=== PATIENT | male | born 2000 | race Caucasian/White ===

== ENCOUNTER 2020-10-06 22:13 | Emergency (ER) | payer OTHER, SELFPAY ==
[2020-10-06 22:51] VITALS: BP 121/74; PULSE 83; RESP 18; TEMP 37.6; O2SAT 98; BMI 29.0
[2020-10-06 23:00] LABS: Add Urine Microscopic? NO; Charge for UA Resulting for Rev
[2020-10-06 23:15] LABS: Urine Color Amber (Yellow)
[2020-10-06 23:16] LABS: Bilirubin Urine Neg (Negative); Blood Urine Neg (Negative); Glucose Urine UA Norm (Normal); Ketones Urine 2+ (Negative); Leukocyte Esterase Urine Negative (Negative); Nitrate Urine Negative (Negative); Protein Urine Neg (Negative); Specific Gravity, Urine 1.015 (1.005-1.030); Urine Appearance Clear (CLEAR); Urobilinogen Urine 1 mg/dL (Negative); pH Urine 6.5 (5-7)
[2020-10-06 23:21] LABS: Hematocrit 45.5 % (42.0-52.0); Hemoglobin 15.2 g/dL (11.7-16.6); Mean Corpuscular HGB Conc 33.4 g/dL (30.0-36.0); Mean Corpuscular Hemoglobin 28.5 pg (28.0-34.0); Mean Corpuscular Volume 85.2 fL (80-94); Mean Platelet Volume 10.4 fL (7.4-10.4); Platelet Count 133 10^3/cmm (130-400); Red Blood Count 5.34 10^6/uL (4.1-5.3); Red Cell Distribution Width 13.6 % (12.1-15.1); White Blood Count 2.9 10^3/uL (4.5-13.0)
[2020-10-06 23:39] LABS: Alanine Aminotransferase 86 U/L (0-41); Albumin Level 4.1 g/dL (3.5-5.2); Alkaline Phosphatase 167 IU/L (40-130); Anion Gap 18.7 (5-19); Aspartate Amino Transferase 49 U/L (0-40); Blood Urea Nitrogen 13 mg/dL (6-20); Calcium 8.7 mg/dL (8.5-10.5); Carbon Dioxide 23 mmol/L (22-29); Chloride 96 mmol/L (98-107); Globulin 2.9 g/dL (1.3-4.6); Glomerular Filtration Rate 107.6 mL/min (90-130); Glucose 91 mg/dL (65-115); Lipase 16 U/L (13-60); Osmolality Calculated 278 mOsm/kg (285-295); Potassium 3.7 mmol/L (3.5-5.1); Sodium 134 mmol/L (136-145); Total Bilirubin 0.6 mg/dL (0.15-1.2)
[2020-10-06 23:51] LABS: Absolute Neutrophil 2.3 10^3/cmm (1.4-6.5); Absolute Segmented Neutrophil 1.5 10/cmm (1.6-7.1); Band Neutrophils Absolute 0.8 10^3/cmm (0.0-1.2); Eosinophils 0 %; Lymphocytes 15 %; Lymphocytes Absolute 0.5 10^3/cmm (1.2-3.4); Monocytes Absolute 0.1 10^3/cmm (0.1-0.6); Platelet Estimate Normal (Normal); Segmented Neutrophils 50 %; Slide Review Slide Review Perform; Total Cells Counted 100 (0-100)
--- NOTE | 2020-10-07 | ED_ITS ---
HPI - Abdominal Pain General: Chief Complaint: Abdominal Pain Stated Complaint: abd pain/n/v Time Seen by Provider: 10/06/20 23:59 History of Present Illness: HPI narrative: 19-year-old male patient comes in with headache, nausea and vomiting, sinus pressure, and illness since Saturday. Patient has had COVID-19 exposure. Patient reports no cough but some sinus drainage. Patient appears unwell but not toxic. Patient appears in mild to moderate pain. Review of Systems General: Reports: 10 or more systems reviewed and unremarkable except in HPI and below Neuro: Reports: headache(s) PFSH ED PFSH: Social History Smoking and tobacco status: never smoked Second hand smoke exposure: No Current gender identity: Male Physical Exam Const: COMMON NORMALS: no acute distress and patient oriented x3 GENERAL APPEARANCE: cooperative HENMT: COMMON NORMALS: normocephalic, TM's normal bilaterally and Normal external nose present HEAD & SCALP: normal to inspection and normocephalic NOSE: Normal external nose present TYMPANIC MEMBRANE: TM's normal bilaterally MOUTH: Normal oral and palatal mucosa present THROAT: posterior oropharynx normal Eye: GENERAL EYE: appearance normal, both eyes and all related structures Neck/C-Spine: COMMON NORMALS: full ROM Lymph: LYMPHATIC: no lymphadenopathy noted Chest: COMMONS NORMALS: normal inspection of the chest Resp: COMMON NORMALS: normal respiratory effort EFFORT & INSPECTION: Yes able to speak in complete sentences Cardio: COMMON NORMALS: regular rate and regular rhythm RATE: regular rate RHYTHM: regular rhythm GI: COMMON NORMALS: Soft to palpation PALPATION: Yes Soft to palpation and Yes Tenderness to palpation present (GI) : COMMON NORMALS: Yes no CVA tenderness BLADDER/KIDNEY EXAM: Yes no CVA tenderness Back/Pelvis: COMMON NORMALS: no CVA tenderness and thoracic and lumbar spine normal to inspection Extremity: COMMON NORMALS: normal to inspection Neuro: COMMON NORMALS: patient oriented x3 and moves all extremities Psych: COMMON NORMALS: mental status grossly normal and cooperative Skin: NARRATIVE SKIN EXAM: Patient has eczema rash Course Vital Signs: Vital signs: Vital Signs Temperature 99.6 F 10/06/20 22:51 Pulse Rate 83 10/06/20 22:51 Respiratory Rate 18 10/06/20 22:51 Blood Pressure 121/74 10/06/20 22:51 Pulse Oximetry 98 10/06/20 22:51 MDM - Abdominal Pain MDM Narrative: Medical decision making narrative: 19-year-old male patient comes in today with some nausea and vomiting and a headache. Patient reports feeling ill for the last 4 to 5 days. Patient reports 4-5 episodes of vomiting. Patient appears unwell but not toxic. Abdomen is soft with some mild tenderness. Bowel sounds are present. Skin is warm and dry. Patient does have eczema rash. Differential diagnosis includes but not limited to gastroenteritis, viral syndrome, migraine headache, COVID-19, hepatitis. Patient does have some mild leukopenia with a 2.9 white blood cell count. CMP was remarkable for some elevated liver enzymes. Lipase was normal. CT scan of the abdomen pelvis noted a mildly enlarged liver with some mesenteric lymph nodes. COVID-19 antigen test was negative. I believe the patient probably has a viral syndrome possible hepatitis or may be COVID-19. We will go ahead and do a PCR COVID-19 test and send out. We have also added an acute hepatitis panel to patient's labs. Recommended patient drink plenty of fluids use Zofran for nausea and vomiting. Get plenty of rest and follow-up with primary care. Patient reported understanding and agreed to plan. Lab Data: Labs: Lab Results 10/06/20 10/06/20 10/06/20 Range/Units 22:40 23:12 23:12 WBC 2.9 L (4.5-13.0) 10^3/ uL RBC 5.34 H (4.1-5.3) 10^6/u L Hgb 15.2 (11.7-16.6) g/dL Hct 45.5 (42.0-52.0) % MCV 85.2 (80-94) fL MCH 28.5 (28.0-34.0) pg MCHC 33.4 (30.0-36.0) g/dL RDW 13.6 (12.1-15.1) % Plt Count 133 (130-400) 10^3/c mm MPV 10.4 (7.4-10.4) fL Lymph % (Auto) Not Reportable [place] % (Auto) Not Reportable Lymph # (Auto) Not Reportable [place] # (Auto) Not Reportable Total Counted 100 (0-100) Atypical Lymphs % 3.0 (0-5) % Absolute Neutrophi ls 2.3 (1.4-6.5) 10^3/c mm Segmented Neutroph ils 50 % Abs Segm Neuts (Ma n) 1.5 L (1.6-7.1) 10/cmm Band Neutrophils 29.0 % Abs Band Neuts (Ma n) 0.8 (0.0-1.2) 10^3/c mm Absolute Lymphocyt es 0.5 L (1.2-3.4) 10^3/c mm Lymphocytes (Manua l) 15 % Monocytes (Manual) 3.0 % Absolute Monocytes 0.1 (0.1-0.6) 10^3/c mm Eosinophils (Manua l) 0 % Absolute Eosinophi ls 0.0 (0.0-0.7) 10^3/c mm Basophils (Manual) 0.0 % Absolute Basophils 0.0 (0.0-0.2) 10^3/c mm Platelet Estimate Normal (Normal) Sodium 134 L (136-145) mmol/L Potassium 3.7 (3.5-5.1) mmol/L Chloride 96 L (98-107) mmol/L Carbon Dioxide 23 (22-29) mmol/L Anion Gap 18.7 (5-19) BUN 13 (6-20) mg/dL Creatinine 0.9 (0.7-1.2) mg/dL GFR Calculation 107.6 (90-130) mL/min Glucose 91 (65-115) mg/dL Calculated Osmolal ity 278 L (285-295) mOsm/k g Lactic Acid (0.5-2.2) mmol/L Calcium 8.7 (8.5-10.5) mg/dL Total Bilirubin 0.6 (0.15-1.2) mg/dL AST 49 H (0-40) U/L ALT 86 H (0-41) U/L Alkaline Phosphata se 167 H (40-130) IU/L C-Reactive Protein (0.0-4.9) mg/L Total Protein 7.0 (6.6-8.7) g/dL Albumin 4.1 (3.5-5.2) g/dL Globulin 2.9 (1.3-4.6) g/dL Lipase 16 (13-60) U/L Urine Color Rita (Yellow) Urine Appearance Clear (CLEAR) Urine pH 6.5 (5-7) Ur Specific Gravit y 1.015 (1.005-1.030) Urine Protein Neg (Negative) Urine Glucose (UA) Norm (Normal) Urine Ketones 2+ H (Negative) Urine Blood Neg (Negative) Urine Nitrate Negative (Negative) Urine Bilirubin Neg (Negative) Urine Urobilinogen 1 H (Negative) mg/dL Ur Leukocyte Mikaela ase Negative (Negative) Monoscreen (Negative) SARS-CoV-2 Ag (Rap id) (Negative) Group A Strep Rapi d (Negative) 10/06/20 10/06/20 10/06/20 Range/Units 23:12 23:12 23:12 WBC (4.5-13.0) 10^3/ uL RBC (4.1-5.3) 10^6/u L Hgb (11.7-16.6) g/dL Hct (42.0-52.0) % MCV (80-94) fL MCH (28.0-34.0) pg MCHC (30.0-36.0) g/dL RDW (12.1-15.1) % Plt Count (130-400) 10^3/c mm MPV (7.4-10.4) fL Lymph % (Auto) [place] % (Auto) Lymph # (Auto) [place] # (Auto) Total Counted (0-100) Atypical Lymphs % (0-5) % Absolute Neutrophi ls (1.4-6.5) 10^3/c mm Segmented Neutroph ils % Abs Segm Neuts (Ma n) (1.6-7.1) 10/cmm Band Neutrophils % Abs Band Neuts (Ma n) (0.0-1.2) 10^3/c mm Absolute Lymphocyt es (1.2-3.4) 10^3/c mm Lymphocytes (Manua l) % Monocytes (Manual) % Absolute Monocytes (0.1-0.6) 10^3/c mm Eosinophils (Manua l) % Absolute Eosinophi ls (0.0-0.7) 10^3/c mm Basophils (Manual) % Absolute Basophils (0.0-0.2) 10^3/c mm Platelet Estimate (Normal) Sodium (136-145) mmol/L Potassium (3.5-5.1) mmol/L Chloride (98-107) mmol/L Carbon Dioxide (22-29) mmol/L Anion Gap (5-19) BUN (6-20) mg/dL Creatinine (0.7-1.2) mg/dL GFR Calculation (90-130) mL/min Glucose (65-115) mg/dL Calculated Osmolal ity (285-295) mOsm/k g Lactic Acid 0.9 (0.5-2.2) mmol/L Calcium (8.5-10.5) mg/dL Total Bilirubin (0.15-1.2) mg/dL AST (0-40) U/L ALT (0-41) U/L Alkaline Phosphata se (40-130) IU/L C-Reactive Protein 57.7 H (0.0-4.9) mg/L Total Protein (6.6-8.7) g/dL Albumin (3.5-5.2) g/dL Globulin (1.3-4.6) g/dL Lipase (13-60) U/L Urine Color (Yellow) Urine Appearance (CLEAR) Urine pH (5-7) Ur Specific Gravit y (1.005-1.030) Urine Protein (Negative) Urine Glucose (UA) (Normal) Urine Ketones (Negative) Urine Blood (Negative) Urine Nitrate (Negative) Urine Bilirubin (Negative) Urine Urobilinogen (Negative) mg/dL Ur Leukocyte Mikaela ase (Negative) Monoscreen Negative (Negative) SARS-CoV-2 Ag (Rap id) (Negative) Group A Strep Rapi d (Negative) 10/07/20 10/07/20 Range/Units 01:45 01:45 WBC (4.5-13.0) 10^3/ uL RBC (4.1-5.3) 10^6/u L Hgb (11.7-16.6) g/dL Hct (42.0-52.0) % MCV (80-94) fL MCH (28.0-34.0) pg MCHC (30.0-36.0) g/dL RDW (12.1-15.1) % Plt Count (130-400) 10^3/c mm MPV (7.4-10.4) fL Lymph % (Auto) [place] % (Auto) Lymph # (Auto) [place] # (Auto) Total Counted (0-100) Atypical Lymphs % (0-5) % Absolute Neutrophi ls (1.4-6.5) 10^3/c mm Segmented Neutroph ils % Abs Segm Neuts (Ma n) (1.6-7.1) 10/cmm Band Neutrophils % Abs Band Neuts (Ma n) (0.0-1.2) 10^3/c mm Absolute Lymphocyt es (1.2-3.4) 10^3/c mm Lymphocytes (Manua l) % Monocytes (Manual) % Absolute Monocytes (0.1-0.6) 10^3/c mm Eosinophils (Manua l) % Absolute Eosinophi ls (0.0-0.7) 10^3/c mm Basophils (Manual) % Absolute Basophils (0.0-0.2) 10^3/c mm Platelet Estimate (Normal) Sodium (136-145) mmol/L Potassium (3.5-5.1) mmol/L Chloride (98-107) mmol/L Carbon Dioxide (22-29) mmol/L Anion Gap (5-19) BUN (6-20) mg/dL Creatinine (0.7-1.2) mg/dL GFR Calculation (90-130) mL/min Glucose (65-115) mg/dL Calculated Osmolal ity (285-295) mOsm/k g Lactic Acid (0.5-2.2) mmol/L Calcium (8.5-10.5) mg/dL Total Bilirubin (0.15-1.2) mg/dL AST (0-40) U/L ALT (0-41) U/L Alkaline Phosphata se (40-130) IU/L C-Reactive Protein (0.0-4.9) mg/L Total Protein (6.6-8.7) g/dL Albumin (3.5-5.2) g/dL Globulin (1.3-4.6) g/dL Lipase (13-60) U/L Urine Color (Yellow) Urine Appearance (CLEAR) Urine pH (5-7) Ur Specific Gravit y (1.005-1.030) Urine Protein (Negative) Urine Glucose (UA) (Normal) Urine Ketones (Negative) Urine Blood (Negative) Urine Nitrate (Negative) Urine Bilirubin (Negative) Urine Urobilinogen (Negative) mg/dL Ur Leukocyte Mikaela ase (Negative) Monoscreen (Negative) SARS-CoV-2 Ag (Rap id) Negative (Negative) Group A Strep Rapi d Negative (Negative) Discharge Plan Discharge Patient Disposition: Home Clinical Impression: Viral syndrome Leukocytopenia, unspecified Qualifiers: Leukopenia type: unspecified Qualified Code(s): D72.819 - Decreased white blood cell count, unspecified Condition: Stable Prescriptions: New ondansetron 4 mg tablet,disintegrating 4 mg PO Q8H PRN (Reason: nausea and vomiting) Qty: 7 RF: 0 No Action bupropion HCl [Wellbutrin XL] 300 mg tablet extended release 24 hr 300 mg PO QAM Qty: 30 RF: 2 fluoxetine [Prozac] 20 mg capsule 20 mg PO DAILY Qty: 30 RF: 2 Discharge Orders: Discharge ED (Routine); Ordered 10/07/20 Ordered By: Ibrahima Saleem Discharge Diet: Advance as tolerated Discharge Activity: Increase activity as tolerated Patient Instructions: Viral Syndrome (ED), Opioid Safety Activity Restrictions/Additional Instructions: Drink plenty of fluids. Use ondansetron as needed for nausea and vomiting. Start with clear liquids and increase diet slowly over the next 24 to 48 hours. We have done a acute hepatitis panel I recommend you follow-up with your primary care for those results. I think you should also have a repeat blood cell count in a week to recheck your white blood cells as they were low. Also your CT scan was fairly normal except for some mild enlargement of your liver which your primary care may want to further evaluate along with the incidental lymph nodes that were seen. Return to the emergency room for worsening symptoms such as persistent vomiting with inability to control it, blood in vomit or stool, or a fever greater than 100.4. Coding Level of Care Code ED Financial Report Service Sales Agent for Precious Higuera
--- NOTE | 2020-10-07 00:11 | XRR_ITS ---
PROCEDURE INFORMATION: Exam: XR Chest Exam date and time: 10/07/2020 12:11 AM Age: 19 years old Clinical indication: Fever; Additional info: Cough, probable covid TECHNIQUE: Imaging protocol: XR of the chest. Views: 1 view. COMPARISON: No relevant prior studies available. FINDINGS: Lungs: Unremarkable. No consolidation. Pleural spaces: Unremarkable. No pleural effusion. No pneumothorax. Heart/Mediastinum: Unremarkable. No cardiomegaly. Bones/joints: Unremarkable. XR/XR chest 1V portable [id number] IMPRESSION: No acute disease.
--- NOTE | 2020-10-07 00:30 | CTR_ITS ---
PROCEDURE INFORMATION: Exam: CT Abdomen And Pelvis With Contrast Exam date and time: 10/07/2020 12:30 AM Age: 19 years old Clinical indication: Nausea and vomiting; Abdominal pain; Generalized; Patient HX: Abd pain with n/v. ; Additional info: Abd pain, n/v TECHNIQUE: Imaging protocol: Computed tomography of the abdomen and pelvis with contrast. Radiation optimization: All CT scans at this facility use at least one of these dose optimization techniques: automated exposure control; mA and/or kV adjustment per patient size (includes targeted exams where dose is matched to clinical indication); or iterative reconstruction. Contrast material: OMNI 300; Contrast volume: 95 ml; Contrast route: INTRAVENOUS (IV); COMPARISON: CR (CHEST, ) 10/07/2020 12:13 AM RADIATION DOSE METRICS: Total DLP (mGy-cm): 1330.65 FINDINGS: Lungs: The lung bases are clear. No effusion Liver: There is mild hepatomegaly. Gallbladder and bile ducts: No wall thickening, pericholecystic fluid or stones. Pancreas: Normal. No ductal dilation. Spleen: Normal. No splenomegaly. Adrenal glands: Normal. No mass. Kidneys and ureters: Normal. No hydronephrosis. Stomach and bowel: Unremarkable. No obstruction. No mucosal thickening. Appendix: No evidence of appendicitis. Intraperitoneal space: Tiny amount of free fluid in the pelvis. Multiple mesenteric lymph nodes, the largest is 1.3 x 1.2 cm. Vasculature: Unremarkable. No abdominal aortic aneurysm. Lymph nodes: See Intraperitoneal space finding. Urinary bladder: Unremarkable as visualized. Reproductive: Unremarkable as visualized. Bones/joints: Unremarkable. No acute fracture. Soft tissues: Unremarkable. CT/CT abdomen pelvis w con* [id number] IMPRESSION: 1. There is mild hepatomegaly. 2. Nonspecific, enlarged mesenteric lymph nodes which may be secondary to infection or neoplasm. Radiation Dose CTDIVOL = (mGy): DLP = 1330.65 (mGy-cm)
[2020-10-07 00:37] LABS: Monoscreen Negative (Negative)
[2020-10-07 00:44] LABS: Lactic Sepsis W/Reflex 0.9 mmol/L (0.5-2.2)
[2020-10-07 00:45] LABS: C Reactive Protein 57.7 mg/L (0.0-4.9)
[2020-10-07] MEDS: iohexol 300 mg/mL 100 mL Btl IV (00:47)
[2020-10-07] MEDS: dexamethasone 4 mg/mL INJ IVP (01:30)
[2020-10-07] MEDS: diphenhydrAMINE 50 mg/mL SDV 1mL 25 MG IVP (01:33)
[2020-10-07] MEDS: metoclopramide 5 mg/mL SDV 2 mL 10 MG IVP (01:34)
[2020-10-07] MEDS: sodium chloride 0.9% 1,000 ML 999 ML IV (01:34)
[2020-10-07] MEDS: ketorolac 30 mg/mL INJ 15 MG IVP (01:34)
[2020-10-07 02:14] LABS: Rapid Strep A Test Negative (Negative)
[2020-10-07 02:25] LABS: SARS Covid-2 Antigen Negative (Negative)
[2020-10-07 02:47] LABS: Hepatitis A Antibody IgM Non-Reactive (Nonreactive); Hepatitis B Core IgM Non-Reactive (Nonreactive); Hepatitis B Surface Antigen Non-Reactive (Nonreactive); Hepatitis C Virus Antibody Non-Reactive (Nonreactive)
[2020-10-07 02:50] VITALS: PULSE 67; RESP 18; O2SAT 98
[2020-10-07 02:58] VITALS: PULSE 67; RESP 18; O2SAT 98
== END 2020-10-07 02:58 | disposition home or self-care (01) ==
PROVIDERS: Emergency Provider Nurse Practitioner Family
DX: B34.9 Viral infection, unspecified (principal); D72.819 Decreased white blood cell count, unspecified
CPT/HCPCS: 36415; 71045; 74177; 80053; 80074; 81003; 83605; 83690; 85007; 85025; 86140; 86308; 87081; 87426; 87635; 87880; 96361; 96374; 96375; 99284; J1100; J1200; J1885; J2765; J7030; Q9967

== ENCOUNTER 2021-04-08 14:22 | Emergency (ER) | payer OTHER, SELFPAY ==
[2021-04-08 14:50] VITALS: BP 134/77; PULSE 95; RESP 16; TEMP 36.6; O2SAT 98; BMI 30.7
--- NOTE | 2021-04-08 15:38 | W.ED.SKABFB ---
HPI - Skin/Abscess/Foreign Bdy General: Chief complaint: Skin/Abscess/Foreign Body Stated complaint: Dermititis break out all over Time Seen by Provider: 04/08/21 14:56 Source: patient Mode of arrival: ambulatory Limitations: no limitations History of Present Illness: Patient is a 20-year-old male who presents to ED today with a complaint of a chronic skin rash. 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 He states he had been on several different medications but eventually was placed on Dupixent biweekly with fairly good control of his symptoms however he is recently moved to the area and hasn't had much access traveling back and forth to [place]. Patient states he would like something to help with his itching. He has no new complaints today. MD complaint: rash Onset (ago): year(s) Location: generalized Severity: severe Quality: pruritic Relieving factors: other (dupixent) Associated symptoms: Deny chills or fever(s) Review of Systems Const: Denies: fever(s), chills, body aches, fatigue or malaise Eyes: Denies: change in vision Card: Denies: chest pain Resp: Denies: dyspnea GI: Denies: abdominal pain Musc: Denies: neck pain, back pain, extremity pain or joint pain Skin/Breast: Reports: rash and pruritus Neuro: Denies: headache(s), numbness in extremities, weakness in extremities or sensory changes [facility] ED PFSH: Medical History (Updated 04/08/21 @ 15:57 by YINA Nieves) Psychiatric care Social History Smoking and tobacco status: never smoked Second hand smoke exposure: No Current gender identity: Male Physical Exam Const: COMMON NORMALS: no acute distress, patient oriented x3, no limitations and alert GENERAL APPEARANCE: cooperative ORIENTATION/CONSCIOUSNESS: Yes awake, Yes oriented to person, Yes oriented to place and Yes oriented to time HENMT: COMMON NORMALS: normocephalic and atraumatic HEAD & SCALP: normocephalic and atraumatic MOUTH: Normal oral and palatal mucosa present, lip normal and tongue normal Eye: GENERAL EYE: appearance normal, both eyes and all related structures Neck/C-Spine: COMMON NORMALS: full ROM, no lymphadenopathy and no meningeal signs Resp: COMMON NORMALS: normal respiratory effort Cardio: COMMON NORMALS: regular rate and regular rhythm RATE: regular rate RHYTHM: regular rhythm Neuro: COMMON NORMALS: patient oriented x3, moves all extremities, no focal motor deficits, no sensory deficits noted and gait normal SENSORIUM/ORIENTATION: Yes alert, Yes oriented to person, Yes oriented to place and Yes oriented to time MENINGEAL SIGNS: Yes no meningeal signs Skin: RASHES: rashes noted OTHER: patient has a diffuse inflammatory rash throughout torso/bilateral UE/LEs that appears plaque/scaly like with excoriations Course Vital Signs: Vital signs: Vital Signs Temperature 97.8 F 04/08/21 14:50 Pulse Rate 95 04/08/21 14:50 Respiratory Rate 16 04/08/21 14:50 Blood Pressure 134/77 04/08/21 14:50 Pulse Oximetry 98 04/08/21 14:50 MDM - Skin/Abscess/Foreign Bdy Medicial Decision Making Spoke about getting patient a referral to Dr. Beavers here in [facility] for better access and getting patient put back on his Dupixent. He states his mother wants him to continue to follow-up in [place]. I spoke to him about how this does not sound very feasible but if that is the route they wish to go that is up to them. I recommended patient follow-up with his PCP-they can also place referral to Dr. Beavers if patient decides he would like somebody closer. Patient will be given PO Vistaril to help with itching. Discharge Plan Discharge Patient Disposition: Home Clinical Impression: Dermatitis Condition: Stable Prescriptions: New Vistaril 50 mg capsule 50 mg PO Q6H PRN (Reason: itching) Qty: 20 0RF No Action bupropion HCl [Wellbutrin XL] 300 mg tablet extended release 24 hr 300 mg PO QAM Qty: 30 2RF fluoxetine [Prozac] 20 mg capsule 20 mg PO DAILY Qty: 30 2RF naltrexone 50 mg tablet 50 mg PO DAILY Qty: 30 2RF ondansetron 4 mg tablet,disintegrating 4 mg PO Q8H PRN (Reason: nausea and vomiting) Qty: 7 0RF Discharge Orders: Discharge ED (Routine); Ordered 04/08/21 Ordered By: Patricia Ledesma Referrals: Nimesh,Luly, DO [Physician] - Activity Restrictions/Additional Instructions: As we discussed you need to try to get back to your tube drawer in [place]. If you decide you would like a tube drawer closer to home please contact your primary care provider for referral to see Dr. Beavers. I have also attached your information to your discharge paperwork-you may try to contact their office to see if they can see you without a referral. Ultimately I feel you would most benefit by getting back on your Dupixent for treatment of your severe dermatitis. Coding Level of Care Code ED Eap Consultant for Precious Higuera
== END 2021-04-08 16:02 | disposition home or self-care (01) ==
PROVIDERS: Emergency Provider Physician Assistant
DX: L30.9 Dermatitis, unspecified (principal)
CPT/HCPCS: 99281

== ENCOUNTER 2021-05-22 13:19 | Emergency (ER) | payer OTHER, SELFPAY ==
[2021-05-22 13:30] VITALS: PULSE 110; RESP 18; TEMP 36.8; O2SAT 100; BMI 30.7
--- NOTE | 2021-05-22 14:09 | XR_ITS ---
WS: [id number] Exam: XR chest 1V portable [id number] Date/Time of Exam: 05/22/2021 2:13 PM Reason For Exam: fatigue Comparison 10/07/2020. Findings: The lungs are clear and fully expanded. Costophrenic angles are sharp. No infiltrates. Bronchovascula r relief appears normal. Cardiac silhouette is unremarkable. Bony elements are intact. XR/XR chest 1V portable [id number] IMPRESSION: Unremarkable chest radiograph.
--- NOTE | 2021-05-22 14:13 | ED_ITS ---
HPI - Extremity Problem General: Chief complaint: Extremity Injury, Lower Stated complaint: Pain in both legs Time Seen by Provider: 05/22/21 13:27 History of Present Illness: Patient is a 20-year-old male comes to the ED with bilateral lower extremity swelling. Symptoms have been going on for approximately 1 month. He has never had any lower extremity swelling like this before. Denies any injury or trauma to lower extremities. He saw his PCP approximately a month ago for same complaint and they put him on a diuretic and Bactrim. Patient says his symptoms improved some but once he ran out of the diuretic and Bactrim his legs started swelling again. He reports pain in both legs and weeping as well. Patient has a job where he is on his feet all day. He does endorse having some increased fatigue over the last month. Denies any chest pain or shortness of breath. Associated symptoms: Deny chest pain, fever(s) or rash Review of Systems Const: Reports: fatigue; Denies: fever(s) or chills Eyes: Denies: change in vision or eye discomfort ENMT: Denies: throat pain, odynophagia, nasal discharge or nasal congestion Card: Denies: chest pain, palpitations, edema, swelling of feet/ankles, dyspnea on exertion or orthopnea Resp: Denies: dyspnea, productive cough or non-productive cough GI: Denies: abdominal pain, nausea, vomiting, diarrhea, constipation or hematochezia : Denies: flank pain, difficulty urinating, dysuria or hematuria Musc: Reports: extremity pain (Bilateral lower extremity.) and extremity swelling (Bilateral lower extremity); Denies: neck pain or back pain Skin/Breast: Denies: rash or new lesions Neuro: Denies: headache(s), numbness in extremities or weakness in extremities [facility] ED PFSH: Medical History Perivascular dermatitis Psychiatric care Surgical History No pertinent past surgical history Social History Smoking and tobacco status: never smoked Second hand smoke exposure: No Current gender identity: Male Physical Exam Const: COMMON NORMALS: patient oriented x3 and alert GENERAL APPEARANCE: cooperative HENMT: COMMON NORMALS: normocephalic HEAD & SCALP: normocephalic MOUTH: Normal oral and palatal mucosa present THROAT: posterior oropharynx normal and uvula midline Eye: COMMON NORMALS: Equal, round and reactive pupils present PUPIL: Yes Equal, round and reactive pupils present Neck/C-Spine: COMMON NORMALS: supple GENERAL: Yes normal visual inspection Resp: COMMON NORMALS: normal respiratory effort, No retractions, No use of accessory muscles and clear to auscultation bilaterally AUSCULTATION: clear to auscultation bilaterally Cardio: COMMON NORMALS: regular rate, regular rhythm, S1 normal heart sound present, S2 normal heart sound present, No gallops present (Cardio), No clicks present (Cardio) and Peripheral pulses 2+ throughout RATE: regular rate RHYTHM: regular rhythm HEART SOUNDS: S1 normal heart sound present, S2 normal heart sound present and Murmur heart sound present systolic Intensity: II/ Characteristics: soft Timing: early PERIPHERAL PULSES: Peripheral pulses 2+ throughout GI: COMMON NORMALS: Normal to inspection, nondistended, normoactive bowel sounds present, Soft to palpation, non-tender and no masses PALPATION: Yes Soft to palpation : COMMON NORMALS: Yes no CVA tenderness BLADDER/KIDNEY EXAM: Yes no CVA tenderness Back/Pelvis: COMMON NORMALS: no CVA tenderness Extremity: GENERAL: Yes edema (Bilateral 2+ pitting edema in lower extremit ies.) OTHER: Bilateral lower extremities have some erythema warmth and tenderness. Findings suggestive of possible cellulitis. Neuro: COMMON NORMALS: patient oriented x3 and moves all extremities SENSORIUM/ORIENTATION: Yes alert Skin: NARRATIVE SKIN EXAM: Patient has generalized dry and erythemic rash throughout body. Patient is constantly scratching his skin and think it is itchy. GENERAL SKIN EXAM: dry skin Course Vital Signs: Vital signs: Vital Signs Temperature 98.3 F 05/22/21 13:30 Pulse Rate 110 H 05/22/21 13:30 Respiratory Rate 18 05/22/21 13:30 Pulse Oximetry 100 05/22/21 13:30 MDM - Extremity (Nontraumatic) Medical Decision Making Patient is a 20-year-old male comes to the ED with bilateral lower extremity edema and bilateral leg pain. He has been having the symptoms now for the past month and saw his primary care physician for them and he was put on an antibiotic and Lasix. His symptoms improved while on the antibiotic and Lasix but now that he stopped taking both symptoms came back again. Patient has 2+ bilateral lower extremity edema with some signs of cellulitis noted as well. EKG showed normal sinus rhythm with no ST segment elevation or depression seen. Labs were unremarkable. Troponin negative and BNP was normal. Chest x-ray showed no acute findings. Patient was diagnosed with bilateral leg edema and cellulitis. He was given a dose of IV Lasix here in the ED and discharged home with a prescription for clindamycin and furosemide. He was told to follow-up with his PCP in the next couple weeks for reevaluation. Return to ED p recautions given. Patient stood agree with plan. Lab Data I reviewed the patient's lab results. : 05/22/21 14:28 05/22/21 14: Radiology Impressions Chest X-Ray 05/22/21 14:09 IMPRESSION: Unremarkable chest radiograph. Laboratory Results WBC 9.6 10^3/uL (4.0-10.0) 05/22/21 14: RBC 4.63 10^6/uL (4.1-5.3) 05/22/21 14:28 Hgb 13.1 g/dL (11.7-16.6) 05/22/21 14: Hct 40.5 % (42.0-52.0) L 05/22/21 14: MCV 87.5 fl (80-94) 05/22/21 14: MCH 28.3 pg (28.0-34.0) 05/22/21 14: MCHC 32.3 g/dL (30.0-36.0) 05/22/21 14: RDW 14.2 % (12.1-15.1) 05/22/21 14: Plt Count 404 10^3/cmm (130-400) H 05/22/21 14: MPV 8.5 fL (7.4-10.4) 05/22/21 14: Neut % (Auto) 57.7 % 05/22/21 14: Lymph % (Auto) 19.2 % 05/22/21 14: Harper % (Auto) 11.6 % 05/22/21 14: Eos % (Auto) 10.1 % 05/22/21 14: Baso % (Auto) 1.1 % 05/22/21 14: Neut # (Auto) 5.51 10^3/uL (1.8-7.7) 05/22/21 14: Lymph # (Auto) 1.8 10^3/uL (0.8-4.8) 05/22/21 14: Harper # (Auto) 1.1 10^3/uL (0.2-0.9) H 05/22/21 14: Eos # (Auto) 1.0 10^3/uL (0.0-0.8) H 05/22/21 14:28 Baso # (Auto) 0.1 10^3/uL (0.0-0.1) 05/22/21 14: Nucleated RBC % (auto) 0 % 05/22/21 14: Nucleated RBCs # 0.0 /100WBC 05/22/21 14:28 Sodium 138 mmol/L (136-145) 05/22/21 14: Potassium 3.9 mmol/L (3.5-5.1) 05/22/21 14: Chloride 103 mmol/L (98-107) 05/22/21 14: Carbon Dioxide 25 mmol/L (22-29) 05/22/21 14: Anion Gap 13.9 (5-19) 05/22/21 14: BUN 16 mg/dL (6-20) 05/22/21 14: Creatinine 0.7 mg/dL (0.7-1.2) 05/22/21 14: GFR Calculation 142.4 mL/min (90-130) H 05/22/21 14: Glucose 118 mg/dL (65-115) H 05/22/21 14:28 Calculated Osmolality 288 mOsm/kg (285-295) 05/22/21 14:28 Calcium 9.0 mg/dL (8.5-10.5) 05/22/21 14:28 Total Bilirubin 0.2 mg/dL (0.15-1.2) 05/22/21 14:28 AST 46 U/L (0-40) H 05/22/21 14:28 ALT 63 U/L (0-41) H 05/22/21 14:28 Alkaline Phosphatase 128 IU/L (40-130) 05/22/21 14:28 Troponin T Baseline 11 ng/L (0-15) 05/22/21 14:28 NT-Pro-B Natriuret Pep 68 pg/mL (0-125) 05/22/21 14:28 Total Protein 6.5 g/dL (6.6-8.7) L 05/22/21 14:28 Albumin 3.4 g/dL (3.5-5.2) L 05/22/21 14:28 Globulin 3.1 g/dL (1.3-4.6) 05/22/21 14:28 EKG Data EKG 1: EKG interpretation date: 05/22/21 Interpretation: Normal sinus rhythm, no ST segment elevation or depression seen, 90 bpm. Discharge Plan Discharge Patient Disposition: Home Clinical Impression: Bilateral leg edema Cellulitis Qualifiers: Site of cellulitis: extremity Site of cellulitis of extremity: lower extremity Laterality: unspecified laterality Qualified Code(s): L03.119 - Cellulitis of unspecified part of limb Condition: Stable Prescriptions: New furosemide 20 mg tablet 20 mg PO DAILY PRN (Reason: edema) Qty: 20 0RF clindamycin HCl 150 mg capsule 300 mg PO QID 7 Days Qty: 56 0RF No Action bupropion HCl [Wellbutrin XL] 300 mg tablet extended release 24 hr 300 mg PO QAM Qty: 30 2RF fluoxetine [Prozac] 20 mg capsule 20 mg PO DAILY Qty: 30 2RF naltrexone 50 mg tablet 50 mg PO DAILY Qty: 30 2RF ondansetron 4 mg tablet,disintegrating 4 mg PO Q8H PRN (Reason: nausea and vomiting) Qty: 7 0RF Vistaril 50 mg capsule 50 mg PO Q6H PRN (Reason: itching) Qty: 20 0RF Discharge Orders: Discharge ED (Routine); Ordered 05/22/21 Ordered By: Wil iGlbert Discharge Diet: Regular Discharge Activity: Resume usual activity Patient Instructions: Cellulitis (ED), Edema (ED) Activity Restrictions/Additional Instructions: Follow-up with PCP at your next scheduled appointment in a couple weeks. Take medications as prescribed. Use compression stockings or wrap legs with Justino bandage to compress and reduce swelling. Elevate legs at night to help with swelling as well. Return to the ER or your medical provider if condition worsens. Please read and understand discharge instructions. Thank you for choosing [facility] for your healthcare needs today. Please realize this is an emergency room and that we are providing you with a medical screening exam and this may not be complete and all inclusive of all the testing and or work up that you may need to determine your ailment or severity of your illness. It is very important that you follow up as instructed or that you return to the Emergency Department should you have concerns or if your condition changes or worsens in any way. Coding Level of Care Code ED Hypertrichologist for [place] Fwd Exam Comprehensive
[2021-05-22 14:36] LABS: Basophils # 0.1 10^3/uL (0.0-0.1); Basophils % 1.1 %; Eosinophils % 10.1 %; Hematocrit 40.5 % (42.0-52.0); Hemoglobin 13.1 g/dL (11.7-16.6); Lymphocytes # 1.8 10^3/uL (0.8-4.8); Lymphocytes % 19.2 %; Mean Corpuscular HGB Conc 32.3 g/dL (30.0-36.0); Mean Corpuscular Hemoglobin 28.3 pg (28.0-34.0); Mean Corpuscular Volume 87.5 fl (80-94); Mean Platelet Volume 8.5 fL (7.4-10.4); Monocytes # 1.1 10^3/uL (0.2-0.9); Monocytes % 11.6 %; Neutrophils # 5.51 10^3/uL (1.8-7.7); Neutrophils % 57.7 %; Nucleated Red Blood Cells % 0 %; Platelet Count 404 10^3/cmm (130-400); Red Blood Count 4.63 10^6/uL (4.1-5.3); Red Cell Distribution Width 14.2 % (12.1-15.1); White Blood Count 9.6 10^3/uL (4.0-10.0)
[2021-05-22] MEDS: ketorolac 30 mg/mL INJ IVP (14:48)
[2021-05-22 15:11] LABS: Troponin(5th) Baseline 11 ng/L (0-15)
[2021-05-22 15:18] LABS: Alanine Aminotransferase 63 U/L (0-41); Albumin Level 3.4 g/dL (3.5-5.2); Alkaline Phosphatase 128 IU/L (40-130); Anion Gap 13.9 (5-19); Aspartate Amino Transferase 46 U/L (0-40); Blood Urea Nitrogen 16 mg/dL (6-20); Carbon Dioxide 25 mmol/L (22-29); Chloride 103 mmol/L (98-107); Globulin 3.1 g/dL (1.3-4.6); Glomerular Filtration Rate 142.4 mL/min (90-130); Glucose 118 mg/dL (65-115); NT Pro B Type Natriuretic Pept 68 pg/mL (0-125); Osmolality Calculated 288 mOsm/kg (285-295); Potassium 3.9 mmol/L (3.5-5.1); Sodium 138 mmol/L (136-145); Total Bilirubin 0.2 mg/dL (0.15-1.2); Total Protein 6.5 g/dL (6.6-8.7)
[2021-05-22] MEDS: FUROsemide 10 mg/mL SDV 4mL 40 MG IVP (15:44)
--- NOTE | 2021-05-22 16:10 | ECG_ITS ---
[facility] Test Date: 2021-05-22 Pat Name: Mega Parsons Department: Room: Gender: Male Smog Technician: : 2000 Requested By: Wil Gilbert Order Number: [id number] Parry MD: Ayad Olivares M.D. Measurements Intervals [place] Rate: 90 P: 119 KS: 157 QRS: 168 QRSD: 85 T: 179 QT: 358 QTc: 440 Interpretive Statements SINUS RHYTHM ARM LEADS REVERSED [INVERTED P AND QRS IN I] No previous ECG available for comparison Electronically Signed On 05-22-2021 22:05:02 CDT by Ayad Olivares M.D. [id number]
== END 2021-05-22 15:55 | disposition home or self-care (01) ==
PROVIDERS: Emergency Provider Physician Assistant
DX: R60.0 Localized edema (principal); L03.116 Cellulitis of left lower limb; L03.115 Cellulitis of right lower limb
CPT/HCPCS: 71045; 80053; 83880; 84484; 85025; 93005; 96374; 96375; 99283; J1885; J1940